=== PATIENT | female | born 2000 | race Hispanic/Latino ===

== ENCOUNTER 2021-11-02 03:22 | Emergency (ER) | payer OTHER, SELFPAY ==
--- NOTE | ~2021-11-02 | XR_ITS ---
EXAMINATION: XR chest 1V portable EXAM DATE: 11/02/2021 07:12 INDICATION: Cough. TECHNIQUE: Portable AP frontal chest x-ray was obtained. There is no prior study for comparison. FINDINGS: The lungs are clear. There are no pleural effusions. The cardiomediastinal silhouette is within normal limits. There is no pneumothorax suspected. The bones and soft tissues are unremarkab le. IMPRESSION: No acute cardiopulmonary findings. Reviewed, dictated and finalized at location A. [employer]
--- NOTE | ~2021-11-02 | CT_ITS ---
EXAMINATION: CT abdomen pelvis w con EXAM DATE: 11/02/2021 10:32 INDICATION: Abdominal pain. TECHNIQUE: Spiral CT of the abdomen and pelvis was performed following intravenous injection of 100 m L Omnipaque 350. Axial, coronal and sagittal images of the abdomen and pelvis were reviewed. The do se-length product (DLP) for this examination was 354.05 mGy-cm. The exposure was tailored according to patient size (auto mA exposure control), and iterative reconstruction (ASIR) was used as additiona l dose reduction technique. There is no prior study for comparison. FINDINGS: The liver, spleen, adrenal glands and pancreas are unremarkable. Gallbladder is unremarkab le. No biliary obstruction. Portal and splenic veins are patent. Kidneys enhance symmetrically. T here is no hydronephrosis. Uterus is anteverted to the right. Ovaries are normal in size. The blad cindy is unremarkable. There is no retroperitoneal or pelvic lymphadenopathy. The appendix is normal. The stomach and small bowel are unremarkable. There is expected amount of c olonic stool. No free intraperitoneal gas. The heart is normal in size. There are no pericardial or pleural effusions. The lung bases are unremarkable. There are no osteoblastic or osteolytic les ions identified. IMPRESSION: 1. No acute intra-abdominal findings. Reviewed, dictated and finalized at location A. [employer]
[2021-11-02 03:26] VITALS: BP 119/75; PULSE 111; RESP 17; TEMP 36.3; O2SAT 100
--- NOTE | 2021-11-02 07:24 | ED.GENADULT ---
HPI - General Adult General Chief complaint: Nausea/Vomiting/Diarrhea Stated complaint: cold symptoms, n/v Time Seen by Provider: 11/02/21 07:01 Source: RN notes reviewed History of Present Illness HPI narrative: Patient presents emergency department from home for abdominal pain. Patient states that she has had a cough for the past 3 weeks that has been nonproductive she states that proximally 2 days ago she began to develop sinus congestion and rhinorrhea patient states that last night she then developed abdominal pain that was diffuse with numerous episodes of nausea vomiting states abdominal pain is described as cramping does not radiate. She denies any fevers or chills sore throat chest pain shortness of breath or any other symptoms states she not taking thing for the symptoms at home Related Data Allergies Allergy/AdvReac Type Severity Reaction Status Date / Time amoxicillin Allergy Unknown Unknown Verified 11/02/21 07:30 Penicillins Allergy Unknown Unknown Verified 11/02/21 07:30 Sulfa (Sulfonamide Allergy Unknown Unknown Verified 11/02/21 07:30 Antibiotics) Review of Systems Review of Systems: Gen.: Denies fevers or chills ENT: Reports congestion and rhinorrhea Respiratory: Denies shortness of breath ports cough CV: Denies chest pain or palpitations GI: See HPI Musculoskeletal: Denies back pain or muscle pain Neuro: Denies numbness, tingling, weakness or focal weakness Skin: Denies rash Except as documented, all other systems reviewed and negative PMFSH Past Medical History Medical History (Updated 11/02/21 @ 11:13 by Murray Tom DO) Patient denies significant medical history Social History Social History (Updated 11/02/21 @ 07:26 by Murray Tom DO) Smoking status: Never smoker Exam Narrative: APPEARANCE: No acute distress, nontoxic, resting in bed EYES: EOMI HEENT: Normocephalic, atraumatic, bilateral turbinates boggy RESPIRATORY: No respiratory distress Clear to auscultation bilaterally with no rhonchi wheezing or rales. CARDIOVASCULAR: Regular rate and rhythm without murmurs rubs or gallops. ABDOMINAL: Soft, nondistended diffusely tender palpation no rebound or guarding MUSCULOSKELETAl: Moves all extremities. No clubbing, cyanosis or edema. NEURO: Awake and alert. Following commands, speech normal, no focal deficits SKIN:: Warm, dry. No rashes lesions or abrasions PSYCHIATRIC: Normal affect/mood, Course Course Emergency Course: Patient states he is feeling better following medication able to drink in ED with no difficulty Patient states that they are feeling much better at this time. States abdominal pain has resolved. Repeat abdominal exam shows the patient's abdomen to be soft and nontender. Discussed with patient results of workup and diagnosis. Discussed need for follow-up with primary care physician, reasons to return to the emergency department in proper use of medication. Patient understands and agrees to current treatment plan discussed with patient with cough concern of Covid will obtain swab prior to discharge Vital Signs Vital signs: Vital Signs Temperature 97.3 F L 11/02/21 03:26 Pulse Rate 111 H 11/02/21 03:26 Respiratory Rate 17 11/02/21 03:26 Blood Pressure 119/75 11/02/21 03:26 Pulse Oximetry 100 11/02/21 03:26 Temperature 97.3 F L 11/02/21 03:26 Pulse Rate 111 H 11/02/21 03:26 Respiratory Rate 17 11/02/21 03:26 Blood Pressure 119/75 11/02/21 03:26 Pulse Oximetry 100 11/02/21 03:26 Medical Decision Making MDM Narrative Medical decision making narrative: Patient's abdomen is soft without significant pain or signs of surgical abdomen on serial exams. Lab and x-ray evaluations are reviewed and patient is felt to be a reasonable candidate for outpatient management. Patient was instructed as to limitations of x-ray and laboratory evaluation and encouraged to return to ED or primary physician for repeat exam in 12 hours if continued or wors
[2021-11-02 07:37] LABS: Basophils Percent Auto 0.2 % (0.2-1.2); Eosinophils Percent Auto 0.3 % (0-4.4); Hematocrit 36.7 % (37.0-47.0); Hemoglobin 12.5 g/dL (12.0-15.0); Immature Granulocyte Absolute 0.03 K/mm3 (0.00-0.031); Immature Granulocyte Percent A 0.3 % (0-0.5); Lymphocytes Absolute Auto 0.83 K/mm3 (0.9-3.2); Lymphocytes Percent Auto 8.5 % (18.3-44.2); Mean Corpuscular HGB Conc 34.1 g/dl (32-36); Mean Corpuscular Hemoglobin 28.8 pg (26-34); Mean Corpuscular Volume 84.6 fl (80-100); Mean Platelet Volume 9.2 fl (7.4-10.4); Monocytes Absolute Auto 0.3 K/mm3 (0.1-0.6); Monocytes Percent Auto 3.5 % (2.6-8.5); Neutrophils Absolute Auto 8.5 K/mm3 (1.3-6.7); Neutrophils Percent Auto 87.2 % (45.5-73.1); Platelet Count Result 261 k/mm3 (150-375); Red Blood Count 4.34 M/mm3 (4.2-5.4); Red Cell Distribution Width 13.4 % (11.5-14.5); White Blood Count 9.8 K/mm3 (4.5-10.0)
[2021-11-02 07:47] LABS: Alanine Aminotransferase 25 U/L (4-35); Albumin Level 4.4 g/dL (3.5-5.1); Alkaline Phosphatase 66 U/L (38-126); Anion Gap 8 mmol/L (8-16); Aspartate Amino Transferase 33 U/L (14-36); Bilirubin,Total 0.5 mg/dL (0.2-1.3); Blood Urea Nitrogen 11 mg/dL (7-17); Carbon Dioxide 24 mmol/L (22-30); Chloride 103 mmol/L (98-107); Estimated CRCL calculation 104 ml/min; Estimated Glomerular Filt Rate > 60; Glucose 112 mg/dL (65-110); Lipase 67 U/L (23-300); Potassium 3.9 mmol/L (3.4-5.0); Sodium 135 mmol/L (137-145)
[2021-11-02 08:28] LABS: Add Urine Microscopic? YES; Appearance Urine Clear (Clear); Bilirubin Urine Negative (Negative); Blood Urine Negative (Negative); Color Urine Yellow (Yellow); Glucose Urine UA Negative (Negative); Ketones Urine 2+ mg/dL (Negative); Leukocyte Esterase Ur Negative LEU/UL (Negative); Mucus Urine Heavy /lpf; Nitrate Urine Negative (Negative); Protein Urine 1+ mg/dL (Negative); Specific Grav Ur 1.029 (1.001-1.035); Squamous Epithelial Cell Urine Occasional /hpf (Few); WBC Urine 0-3 /hpf
[2021-11-02] MEDS: SODIUM CHLORIDE 0.9% IV 1,000 ML 999 ML IV CONT (09:10)
[2021-11-02] MEDS: KETOROLAC 30 MG/ML VIAL (*BKC) IV PUSH (09:10)
[2021-11-02] MEDS: FAMOTIDINE 20 MG/2 ML VIAL IV PUSH (09:10)
[2021-11-02 11:13] VITALS: BP 121/74; PULSE 84; RESP 16
[2021-11-03 13:42] LABS: SARS-CoV-2 RNA PCR Negative
== END 2021-11-02 12:45 | disposition home or self-care (01) ==
PROVIDERS: Emergency Provider Emergency Medicine
DX: R10.9 Unspecified abdominal pain (principal); R11.2 Nausea with vomiting, unspecified; Z20.822 Contact with and (suspected) exposure to COVID-19
CPT/HCPCS: 36415; 71045; 74177; 80053; 81001; 81025; 83690; 85025; 87804; 96361; 96374; 96375; 99284; C9803; J1885; J7030; Q9967; U0003; U0005

== ENCOUNTER 2023-06-05 13:34 | Emergency (ER) | payer OTHER, SELFPAY ==
--- NOTE | 2023-06-05 13:37 | ED.FEMALEGU ---
HPI - Female Genitourinary General Chief complaint: Urogenital-Female Stated complaint: uti symptoms Time Seen by Provider: 06/05/23 13:37 Source: patient Mode of arrival: ambulatory Limitations: no limitations History of Present Illness HPI Narrative: Awilda is a 23-year-old female patient presenting to the clinic today with complaints of possible urinary tract infection. She reports she has been having burning with urination, frequency, and urgency for the past 5 days. Was seen in urgent care in [place] and her urine was normal at that time. States that they tested her for STIs as well and now was negative. States she has not been sexually active for 6 months. Denies any fever, chills, body aches, lower abdominal pain, or flank pain. Denies any vaginal discharge. Related Data Allergies Allergy/AdvReac Type Severity Reaction Status Date / Time amoxicillin Allergy Unknown Unknown Verified 06/05/23 13:58 Penicillins Allergy Unknown Unknown Verified 06/05/23 13:58 Sulfa (Sulfonamide Allergy Unknown Unknown Verified 06/05/23 13:58 Antibiotics) Review of Systems Review of Systems: Pertinent positives per HPI. Patient denies any fever, chills, rash, headache, visual changes, dizziness, cough, runny nose, sore throat, shortness of breath, chest pain, palpitations, nausea, vomiting, diarrhea, constipation, abdominal pain. PMFSH Past Medical History Medical History Patient denies significant medical history Social History Social History Smoking status: Never smoker Comments At the time of my signature, I reviewed and agree with the nursing past medical, surgical, social, and family history. There is no relevant family history pertinent to the patient complaint. Exam Narrative: General: Well-developed, well nourished, in no apparent distress. Head: Normocephalic, atraumatic. Cardio: Regular rate and rhythm, s1 and s2 normal, no murmur appreciated. Resp: Clear to auscultation bilaterally, no rhonchi, rales, wheezing or rubs. Abdomen: Soft, pliable, bowel sounds present in all quadrants, non-tender to palpation, no organomegly, no CVAT tenderness. Course Course Emergency Course: Portions of this record may have been created with voice recognition software. Level of Care: Express Care Visit Vital Signs Vital signs: Vital signs reviewed MDM - Female Genitourinary MDM Narrative Medical decision making narrative: At the time of visit patient is resting comfortably on the exam table. Urinalysis shows 1+ protein but no sign of infection or blood. Will send urine for culture. Discussed other causes of urinary frequency urgency and burning such as interstitial cystitis her overactive bladder syndrome. Patient denies any vaginal discharge and has recently been tested for STI support were negative. She has not been sexually active for 6 months. Supportive measures were discussed with the patient she voiced understanding discharge instructions and agrees to treatment plan Differential Diagnosis Differential diagnosis: Likely urinary tract infection and cystitis Discharge Plan Discharge Clinical Impression: Dysuria, Urinary frequency, Urinary urgency Patient Disposition: Home, Self-Care Condition: Stable Instructions: Antibiotic Form, Dysuria (ED), Urinary Urgency and Frequency (DC) Additional Instructions: UA is negative for any sign of infection. Does have 1+ protein. Will send for culture Take Pyridium as prescribed Increase fluids and stay well hydrated Wipe front to back. May use wet wipes. Avoid tub baths If sexually active- pee before and after intercourse. Wear cotton panties Avoid tight clothing up against the genitals Follow up with your PCP in 1 week if symptoms persist. Prescriptions: New phenazopyridine [Pyridium] 200 mg tablet
[2023-06-05 13:49] VITALS: BP 115/75; PULSE 69; RESP 18; TEMP 36.6; O2SAT 100
== END 2023-06-05 14:10 | disposition home or self-care (01) ==
PROVIDERS: Emergency Provider Nurse Practitioner Family; PCP Family Medicine
DX: R30.0 Dysuria (principal); R35.0 Frequency of micturition; R39.15 Urgency of urination
CPT/HCPCS: 81003; 87086; 87088; 99213; G0463

== ENCOUNTER 2023-06-06 08:54 | Emergency (ER) | payer OTHER, SELFPAY ==
[2023-06-06 08:57] VITALS: BP 123/74; PULSE 85; RESP 18; TEMP 36.4; O2SAT 100
--- NOTE | 2023-06-06 09:13 | ED.FEMALEGU ---
HPI - Female Genitourinary General Chief complaint: Urogenital-Female <Jeb Brooks PA-C - Last Filed: 06/06/23 13:06> Stated complaint: urinary issues <ALEJANDRA Palam Last Filed: 06/06/23 13:06> Time Seen by Provider: 06/06/23 09:01 <Jeb Brooks PA-C - Last Filed: 06/06/23 13:06> Source: patient <ALEJANDRA Palma Last Filed: 06/06/23 13:06> Mode of arrival: ambulatory <ALEJANDRA Palma Last Filed: 06/06/23 13:06> Limitations: no limitations <ALEJANDRA Palma Last Filed: 06/06/23 13:06> History of Present Illness HPI Narrative: This is a 23-year-old female who presents to the ED with chief complaint of urinary symptoms ongoing for the past week. States she has been seen in an urgent care in her home town of [place] and in urgent care yesterday for the same. She states that both times they showed a negative urinalysis. Patient states that she started to have a little more lower back pain so she became concerned and came again today. She states her dysuria and frequency are actually getting better today. She states Azo seem to provide some relief. She has not been taking any antibiotics. She states that her normal menstrual period is due and feels that the back pain may be related to this. Denies fevers, chills, flank pain, nausea, vomiting.. Denies any specific concern for STDs. She states that she is sexually active and agrees to STD screening today. Denies vaginal pain, discharge, pruritus. <ALEJANDRA Palma Last Filed: 06/06/23 13:06> Related Data Allergies/Adverse reactions: Allergies Allergy/AdvReac Type Severity Reaction Status Date / Time amoxicillin Allergy Unknown Unknown Verified 06/06/23 09:10 Penicillins Allergy Unknown Unknown Verified 06/06/23 09:10 Sulfa (Sulfonamide Allergy Unknown Unknown Verified 06/06/23 09:10 Antibiotics) <ALEJANDRA Palma Last Filed: 06/06/23 13:06> Review of Systems Review of Systems: All systems as dictated in HPI <Jeb Brooks PA-C - Last Filed: 06/06/23 13:06> [facility] Past Medical History Medical History: Medical History Patient denies significant medical history <Jeb Brooks PA-C - Last Filed: 06/06/23 13:06> Social History Social History: Social History Smoking status: Never smoker <Jeb Brooks PA-C - Last Filed: 06/06/23 13:06> Exam Narrative: GENERAL: Well-appearing, well-nourished, and in no acute distress. HEAD: Normocephalic, atraumatic. EYES: PERRLA and EOMI. ENT: Nares clear, no rhinorrhea or epistaxis. Mucous membranes moist. Oropharynx without tonsillar hypertrophy exudate or other lesions. NECK: Supple. No adenopathy or masses. CHEST: No respiratory distress. Clear to auscultation. No wheezes rales or rhonchi HEART: Regular rate and rhythm. No murmur heard. Normal peripheral pulses. ABDOMEN: Negative flank tenderness bilaterally. Soft, nontender, nondistended, normal active bowel sounds. MSK: Normal range of motion. No edema. SKIN: Warm, dry, no rash. NEURO: Alert and oriented x3. No focal deficits. PSYCH: Normal mood and affect. <Jeb Brooks PA-C - Last Filed: 06/06/23 13:06> Course PATIENT ACCESS DIRECTOR/PA Physician Supervision For this patient encounter, I reviewed the PATIENT ACCESS DIRECTOR or PA documentation, treatment plan, and medical decision making; and I had [id number] time with this patient. <Liam Crandall MD - Last Filed: 06/06/23 17:10> Vital Signs Vital signs: Vital Signs Temperature 97.5 F L 06/06/23 08:57 Pulse Rate 85 06/06/23 08:57 Respiratory Rate 18 06/06/23 08:57 Blood Pressure 123/74 06/06/23 08:57 Pulse Oximetry 100 06/06/23 08:57 Oxygen Delivery Room Air 06/06/23 08:57 Temperature 97.5 F L 06/06/23 08:57 Pulse Rate 72 06/06/23 10:47 Respiratory Rate 18 06/06/23 10:4
[2023-06-06 09:55] LABS: Appearance Urine Clear (Clear); Bilirubin Urine Negative (Negative); Blood Urine Negative (Negative); Color Urine Yellow (Yellow); Glucose Urine UA Negative (Negative); Ketones Urine Negative (Negative); Leukocyte Esterase Ur Negative LEU/UL (Negative); Nitrate Urine Negative (Negative); Protein Urine Negative (Negative); Specific Grav Ur 1.004 (1.001-1.035); Urobilinogen Urine 0.2 mg/dL (<2.0)
[2023-06-06 09:55] LABS: Basophils Percent Auto 0.6 % (0.2-1.2); Eosinophils Absolute Auto 0.1 K/mm3 (0-0.3); Eosinophils Percent Auto 1.7 % (0-4.4); Hematocrit 43.8 % (37.0-47.0); Hemoglobin 14.1 g/dL (12.0-15.0); Immature Granulocyte Absolute 0.02 K/mm3 (0.00-0.031); Immature Granulocyte Percent A 0.3 % (0-0.5); Lymphocytes Absolute Auto 2.17 K/mm3 (0.9-3.2); Lymphocytes Percent Auto 33.5 % (18.3-44.2); Mean Corpuscular HGB Conc 32.2 g/dl (32-36); Mean Corpuscular Volume 90.1 fl (80-100); Mean Platelet Volume 9.5 fl (7.4-10.4); Monocytes Absolute Auto 0.4 K/mm3 (0.1-0.6); Monocytes Percent Auto 6.3 % (2.6-8.5); Neutrophils Absolute Auto 3.7 K/mm3 (1.3-6.7); Neutrophils Percent Auto 57.6 % (45.5-73.1); Platelet Count Result 305 k/mm3 (150-375); Red Blood Count 4.86 M/mm3 (4.2-5.4); Red Cell Distribution Width 13.2 % (11.5-14.5); White Blood Count 6.5 K/mm3 (4.5-10.0)
[2023-06-06 10:08] LABS: Alanine Aminotransferase 26 U/L (6-35); Albumin Level 4.6 g/dL (3.5-5.1); Alkaline Phosphatase 54 U/L (38-126); Anion Gap 6 mmol/L (8-16); Aspartate Amino Transferase 33 U/L (14-36); Bilirubin,Total 0.6 mg/dL (0.2-1.3); Blood Urea Nitrogen 10 mg/dL (7-17); Calcium 9.2 mg/dL (8.4-10.2); Carbon Dioxide 22 mmol/L (22-30); Chloride 104 mmol/L (98-107); Estimated CRCL calculation 124 ml/min; Estimated Glomerular Filt Rate > 60; Glucose 88 mg/dL (65-110); Potassium 4.1 mmol/L (3.4-5.0); Sodium 132 mmol/L (137-145)
[2023-06-06 10:25] LABS: Add Urine Microscopic? NO
[2023-06-06 10:47] VITALS: BP 115/78; PULSE 72; RESP 18; O2SAT 100
== END 2023-06-06 11:14 | disposition home or self-care (01) ==
PROVIDERS: Emergency Medicine; Emergency Provider Physician Assistant; PCP Family Medicine
DX: R30.0 Dysuria (principal)
CPT/HCPCS: 36415; 80053; 81003; 81025; 85025; 87070; 87077; 87491; 87591; 99284

== ENCOUNTER 2024-10-24 06:05 | Emergency (ER) | payer OTHER, SELFPAY ==
--- NOTE | ~2024-10-24 | XR_ITS ---
EXAMINATION: XR chest 2V DATE: 10/24/2024 06:54 INDICATION: Cough. TECHNIQUE: Frontal and lateral views of the chest were obtained. COMPARISON: Chest single view 11/02/21, CT abdomen and pelvis 11/02/2021 FINDINGS: There is no pneumonia, pleural effusion, or pneumothorax. The heart size is normal. IMPRESSION: 1. No acute cardiopulmonary disease. Reviewed, dictated and finalized at location A. [employer]
[2024-10-24 06:10] VITALS: BP 120/82; PULSE 95; RESP 18; TEMP 36.5; O2SAT 100
[2024-10-24 07:43] LABS: Influenza A QL RT-PCR Positive (Negative); Influenza B QL RT-PCR Negative (Negative); RSV RNA, RT-PCR Negative (Negative); SARS-CoV-2 RNA PCR Negative (Negative)
--- NOTE | 2024-10-24 09:53 | ED_ITS ---
HPI - URI/Sore Throat General Chief Complaint: Upper Respiratory Infection Stated Complaint: wet cough for a month and a half Time Seen by Provider: 10/24/24 07:32 History of Present Illness HPI Narrative: 24-year-old otherwise healthy female presenting for a cough, upper respiratory symptoms, congestion. She states for last couple days she has been having persistent wet cough, phlegm and congestion in her upper airways. Has had sick contacts. She was also sick with a upper respiratory infection about 6 weeks ago which has resolved. Denies any fever at home, no nausea vomiting, tolerating p.o. intake. Has tried Robitussin for cough but no other medications. Related Data Allergies Allergy/AdvReac Type Severity Reaction Status Date / Time amoxicillin Allergy Unknown Unknown Verified 06/06/23 09:10 Penicillins Allergy Unknown Unknown Verified 06/06/23 09:10 Sulfa (Sulfonamide Allergy Unknown Unknown Verified 06/06/23 09:10 Antibiotics) Review of Systems Review of Systems: As reviewed above in HPI [facility] Past Medical History Medical History Patient denies significant medical history Social History Social History Smoking status: Never smoker Exam Narrative: GENERAL: [Well-appearing, well-nourished, and in no acute distress.] HEAD: [Normocephalic, atraumatic.] EYES: [PERRLA and EOMI.] ENT: Congested sound in but clear posterior oropharynx, no redness or erythema, no exudates. NECK: Supple. CHEST: [Clear to auscultation. No respiratory distress.] HEART: [Regular rate and rhythm]. No murmur heard. [Normal peripheral pulses.] ABDOMEN: [Soft, nondistended], [nontender], [No rigidity or guarding] EXTREMITIES: Normal range of motion. [No edema.] SKIN: Warm, dry, no rash. NEURO: [No focal deficits]. Alert and oriented [x3.] PSYCH: [Normal mood and affect.] Course Vital Signs Vital signs: Vital Signs Temperature 36.5 C 10/24/24 06:10 Pulse Rate 95 10/24/24 06:10 Respiratory Rate 18 10/24/24 06:10 Blood Pressure 120/82 10/24/24 06:10 Pulse Oximetry 100 10/24/24 06:10 Temperature 36.5 C 10/24/24 06:10 Pulse Rate 95 10/24/24 06:10 Respiratory Rate 18 10/24/24 06:10 Blood Pressure 120/82 10/24/24 06:10 Pulse Oximetry 100 10/24/24 06:10 MDM - URI/Sore Throat MDM Narrative Medical decision making narrative: 24-year-old otherwise healthy female presenting with URI symptoms. She states she had URI symptoms about 6 weeks prior that resolved in last 2 days she has been having nonproductive cough with upper respiratory congestion. No fever but she states she felt hot. She is afebrile here no tachycardia or respiratory complaints otherwise. Clear breath sounds throughout. Suspicion presently is for viral upper respiratory infection or potential pneumonia given her recent URI with persistent and new symptoms. COVID flu influenza swabs were obtained and chest x-ray ordered. Chest x-ray was independently reviewed and there is no pneumonia pleural effusion or pneumothorax. Her COVID fluid RSV swabs came back with influenza A. I discussed the treatment plan with the patient as well as risks and benefits of initiating Tamiflu therapy. Patient has no chronic medical conditions and otherwise well-appearing and we elected to hold off on Tamiflu given the side effect profile and treat her conservatively with recommendations for Tylenol, ibuprofen, guaifenesin and pseudoephedrine. Patient will follow-up with regular primary care provider. Medical Records Attestation: I reviewed the patient's medical records. Lab Data Attestation: I reviewed the patient's lab results. Labs: Lab Results 10/24/24 Range/Units 06:40 Influenza A (RT-PCR) Positive A (Negative) Influenza B (RT-PCR) Negative (Negative) RSV (RT-PCR) Negative (Negative) SARS-CoV-2 RNA (RT-PCR) Negative (Negative) Imaging Data Attestation: I personally reviewed and interpreted this imaging study as follows: My impression: Impressions Chest X-Ray 10/24/24 07:00 IMPRESSION: 1. No acute cardiopulmonary disease. Discharge Plan Discharge Clinical Impression: Influenza A Patient Disposition: Home, Self-Care Condition: Stable Instructions: Antibiotic Form, Influenza (ED) Additional Instructions: You did test positive for influenza A. We did discuss treatments including [id number] medications such as Tylenol and ibuprofen for fevers and myalgias, pseudoephedrine and guaifenesin for nasal decongestion and thinning secretions, air humidifiers, warm liquids, good oral intake. No pneumonia on your chest x-ray, no need for antibiotics. If you have any worsening symptoms or any new symptoms such as respiratory distress, chest pain or any other concerns please return to the emergency department otherwise follow-up with your regular primary care provider. Patient Language: Chinese Prescriptions: No Action phenazopyridine [Pyridium] 200 mg tablet 200 mg PO TID PRN (Reason: pain) Qty: 6 0RF ibuprofen [IBU] 600 mg tablet 600 mg PO Q6H PRN (Reason: pain) Qty: 20 0RF ondansetron 4 mg tablet,disintegrating 4 mg PO Q6H PRN (Reason: nausea and vomiting) Qty: 10 0RF benzonatate 100 mg capsule 100 mg PO TID PRN (Reason: cough) Qty: 10 0RF Follow-up/Referrals: Anatoly,Paulina Villanueva MD [Primary Care Provider] - Time of Disposition: 07:57
== END 2024-10-24 08:02 | disposition home or self-care (01) ==
PROVIDERS: Emergency Medicine; Emergency Provider Student in an Organized Health Care Education/Training Program; PCP Family Medicine
DX: J10.1 Influenza due to other identified influenza virus with other respiratory manifestations (principal); Z20.822 Contact with and (suspected) exposure to COVID-19
CPT/HCPCS: 71046; 87637; 99283